=== PATIENT | male | born 1950 | race Caucasian/White ===

== ENCOUNTER 2018-06-25 18:17 | Emergency (ER) | payer OTHER ==
[~2018-06-25] VITALS: Ht 167.6 cm; Wt 79.4 kg
[2018-06-25] MEDS ORDERED: LOTREL 5-10 MG1 CAP (18:26)
[2018-06-25] MEDS ORDERED: ATORVASTATIN CA20 MG (18:26)
[2018-06-25] MEDS ORDERED: METOPROLOL ER-1 EAC1 (18:26)
[2018-06-25] MEDS ORDERED: ASA81 MG (18:27)
[2018-06-25] MEDS ORDERED: MULTI VITAMIN1 EACH (18:27)
== END 2018-06-25 21:32 | disposition home or self-care (01) ==
LOC: ER 18:17
DX: N39.0 Urinary tract infection, site not specified (principal); R10.32 Left lower quadrant pain

== ENCOUNTER 2019-02-07 18:50 | Emergency (ER) | payer OTHER ==
[~2019-02-07] VITALS: Ht 167.6 cm; Wt 81.6 kg
[~2019-02-07 18:50] MED LIST: ASA81 MG; ATORVASTATIN CA20 MG; LOTREL 5-10 MG1 CAP; METOPROLOL ER-1 EAC1; MULTI VITAMIN1 EACH
== END 2019-02-07 21:49 | disposition home or self-care (01) ==
LOC: ER 18:50
DX: R06.02 Shortness of breath (principal); J06.9 Acute upper respiratory infection, unspecified; J45.909 Unspecified asthma, uncomplicated